=== PATIENT | male | born 1965 | race Caucasian/White ===

== ENCOUNTER 2016-08-08 08:52 | Emergency (ER) | payer BC ==
[~2016-08-08] VITALS: Ht 177.8 cm; Wt 91.3 kg
[2016-08-08 10:06] LABS: EOSINOPHIL (%) 0.4 % (0-5); HEMATOCRIT 46.5 % (38.0-50.0); IMMATURE GRANULOCYTE (%) 0.2 % (0.0-0.7); INSTRUMENT ABS NEUTROPHIL CT 2.8 K/uL; LYMPHOCYTE COUNT 2.1 K/uL (1.0-2.8); MCH 28.6 PG (29.0-34.0); MCHC 33.8 G/DL (30.0-36.0); MCV 84.7 FL (86-99); MEAN PLAT.VOLUME 9.3 uM^3 (9.0-12.4); MONOCYTE (%) 6.2 % (3-12); MONOCYTE COUNT 0.3 K/uL (0-0.8); NEUTROPHIL (%) 53.1 % (45-76); NEUTROPHIL COUNT 2.8 K/uL (1.8-6.4); PLATELET COUNT 254 K/uL (156-360); RBC DIS.WIDTH-CV 11.9 % (11.8-14.6); RED BLOOD COUNT 5.49 M/uL (4.00-5.50); WHITE BLOOD COUNT 5.2 K/uL (4.1-10.2)
[2016-08-08 10:13] LABS: CHLORIDE 105 mEq/L (99-109); POTASSIUM 3.9 mEq/L (3.7-5.4); SODIUM 139 mEq/L (136-147)
[2016-08-08 10:15] LABS: GLUCOSE 133 mg/dL (70-99)
[2016-08-08 10:16] LABS: ANION GAP 11 MEQ/L (2-14)
[2016-08-08 10:19] LABS: GFR ESTIMATE (CALCULATED) > 59 mL/min/
[2016-08-08 10:20] LABS: UREA NITROGEN (BUN) 16 mg/dL (9-23)
[2016-08-08 10:59] LABS: ADD MIUA? NO; BILIRUBIN NEGATIVE; BLOOD NEGATIVE; COLOR YELLOW ((YELLOW)); GLUCOSE (STRIP) NEGATIVE; KETONES NEGATIVE; LEUKOCYTES NEGATIVE; NITRITE NEGATIVE; PROTEIN (STRIP) NEGATIVE; UROBILINOGEN 0.2 MG/DL (0.2-1.0)
[2016-08-08 11:11] VITALS: BP 133/96
[2016-08-08] MEDS ORDERED: LISINOPRIL10 MG PO (11:11)
== END 2016-08-08 11:35 | disposition home or self-care (01) ==
LOC: EME 08:52
PROVIDERS: Emergency Medicine
DX: I10 Essential (primary) hypertension (principal); R35.0 Frequency of micturition; E78.5 Hyperlipidemia, unspecified; Z87.891 Personal history of nicotine dependence
CPT/HCPCS: 71020; 80048; 81003; 85025; 93005; 99281; 99285